=== PATIENT | female | born 1950 | race Caucasian/White ===

== ENCOUNTER → 2018-02-06 09:00 | Outpatient (CLI) | payer OTHER ==
[~2018-02-06 09:00] MED LIST: EPLERENONE25 MG; GLIMEPIRIDE2 MG; ONGLYZA5 MG; TARKA 2/1801 BOTTLE
== END | disposition home or self-care (01) ==
LOC: EKG 09:00 → CIR.AMB 02-10 05:15 → EDSTATUS 02-10 12:00 → CIR.AMB 02-10 15:12
DX: D64.89 Other specified anemias (principal); D03.8 Melanoma in situ of other sites; D68.8 Other specified coagulation defects; I10 Essential (primary) hypertension; R07.89 Other chest pain; N39.0 Urinary tract infection, site not specified; Z01.810 Encounter for preprocedural cardiovascular examination; Z01.812 Encounter for preprocedural laboratory examination